=== PATIENT | male | born 1980 | race Caucasian/White ===

== ENCOUNTER → 2021-11-21 02:02 | Outpatient (CLI) | payer OTHER, SELFPAY ==
[2021-11-21 16:02] LABS: SARS-CoV-2 RNA PCR Negative
== END ==
PROVIDERS: PCP Internal Medicine; Visit Provider Nurse Practitioner
DX: R09.81 Nasal congestion (principal); Z20.822 Contact with and (suspected) exposure to COVID-19
CPT/HCPCS: C9803; U0003; U0005

== ENCOUNTER 2022-06-12 09:04 | Outpatient (CLI) | payer OTHER, SELFPAY ==
[2022-06-12 19:16] LABS: Cholesterol 191 mg/dL (0-200); HDL Direct 73 mg/dL; Triglycerides 43 mg/dL (<150)
[2022-06-12 19:27] LABS: LDL Cholesterol Direct 82 mg/dL
[2022-06-16 12:43] LABS: Gliadin AB, IgG <1.0 U/mL (<15.0); TTG IGA AB <1.0 U/mL (<15.0)
== END 2022-06-12 09:05 | disposition home or self-care (01) ==
LOC: ANHGOSHLAB 09:05
PROVIDERS: PCP Internal Medicine; Visit Provider Nurse Practitioner
DX: R07.9 Chest pain, unspecified (principal); R14.0 Abdominal distension (gaseous)
CPT/HCPCS: 36415; 80061; 83516; 86255

== ENCOUNTER 2025-06-22 11:25 | Outpatient (CLI) | payer OTHER, SELFPAY ==
[2025-06-22 18:10] LABS: Hematocrit 43.8 % (42.0-52.0); Hemoglobin 14.5 g/dL (14.0-18.0); Immature Granulocyte Percent A 0.3 % (0-0.5); Lymphocytes Absolute Auto 1.61 K/mm3 (0.9-3.2); Mean Corpuscular HGB Conc 33.1 g/dl (32-36); Mean Corpuscular Hemoglobin 29.7 pg (26-34); Mean Corpuscular Volume 89.6 fl (80-100); Nucleated Red Blood Cells Absolute Auto 0.000 K/mm3 (0.0-0.012); Nucleated Red Blood Cells Perc 0.0 % (0.0-0.2); Platelet Count Result 332 k/mm3 (150-375); Red Blood Count 4.89 M/mm3 (4.6-6.20); White Blood Count 7.7 K/mm3 (4.5-10.0)
[2025-06-22 18:12] LABS: Iron 65 ug/dL (49-181)
[2025-06-22 18:21] LABS: Percent Iron Saturation 23 % (20-50)
[2025-06-22 18:48] LABS: Ferritin 144.00 ng/mL (17.9-464)
[2025-06-22 18:50] LABS: Alanine Aminotransferase 41 U/L (6-50); Albumin Level 4.8 g/dL (3.5-5.1); Alkaline Phosphatase 86 U/L (38-126); Anion Gap 5 mmol/L (4-12); Aspartate Amino Transferase 37 U/L (17-59); Bilirubin,Total 0.8 mg/dL (0.2-1.3); Blood Urea Nitrogen 16 mg/dL (9-20); Calcium 9.9 mg/dL (8.4-10.2); Carbon Dioxide 27 mmol/L (22-30); Chloride 104 mmol/L (98-107); Cholesterol 200 mg/dL (0-200); Estimated Glomerular Filt Rate > 60; Glucose 90 mg/dL (65-110); HDL Direct 83 mg/dL; Potassium 4.7 mmol/L (3.4-5.0); Sodium 136 mmol/L (137-145); Total Protein 7.8 g/dL (6.3-8.2); Triglycerides 50 mg/dL (<150)
[2025-06-22 19:25] LABS: Thyroid Stimulating Hormone 1.560 uIU/mL (0.465-4.680)
[2025-06-22 20:01] LABS: Vitamin B12 355.0 pg/mL (239-931)
[2025-06-23 13:08] LABS: Anti-CCP Ab, IgG/IgA 9 units (0-19)
[2025-06-25 15:09] LABS: ANA by IFA Rfx Titer/Pattern Negative (.)
== END 2025-06-22 11:26 | disposition home or self-care (01) ==
LOC: ANHGOSHLAB 11:26
DX: R53.83 Other fatigue (principal); Z13.29 Encounter for screening for other suspected endocrine disorder; Z13.0 Encounter for screening for diseases of the blood and blood-forming organs and certain disorders involving the immune mechanism; Z13.228 Encounter for screening for other metabolic disorders; R51.9 Headache, unspecified; M79.641 Pain in right hand; M79.642 Pain in left hand; Z13.220 Encounter for screening for lipoid disorders; E55.9 Vitamin D deficiency, unspecified
CPT/HCPCS: 36415; 80053; 80061; 82306; 82607; 82728; 82746; 83540; 83550; 84443; 85025; 86038; 86200; 86430; 86618